=== PATIENT | female | born 1970 | race Two or more races ===

== ENCOUNTER → 2021-03-31 | Outpatient (CLI) | payer OTHER ==
--- NOTE | 2021-03-31 13:42 | RAD ---
EXAM: Lumbar spine, 2 views. HISTORY: Pain. COMPARISON: None. FINDINGS: 2 views of the lumbar spine are obtained. There is a transitional lumbosacral segment, a no rmal variant. This considered a sacralized L5 segment for this dictation. Based on this numbering sys tem, there is slight retrolisthesis of L4 and L5. There is facet arthropathy at the lower lumbar leve ls. There is minimal lumbar dextrocurvature. IMPRESSION: 1. Minimal to mild degenerative change involving the lumbar spine. 2. Transitional lumbosacral segment, a normal variant. Electronically signed by: Anali Wheeler MD (03/31/2021 1:39 PM) [id number]
== END ==
LOC: RAD 11:08
PROVIDERS: ATTEND Family Medicine
DX: Z02.71 Encounter for disability determination (principal); M47.816 Spondylosis without myelopathy or radiculopathy, lumbar region
CPT/HCPCS: 72100